=== PATIENT | female | born 1995 | race Caucasian/White ===

== ENCOUNTER 2016-11-22 07:02 | Emergency (ER) | payer OTHER ==
[~2016-11-22] VITALS: Ht 175.3 cm; Wt 93.2 kg
[~2016-11-22 07:02] MED LIST: BCPILLS PO
[2016-11-22 07:07] VITALS: TEMP 36.3; Ht 175.3 cm; Wt 93.2 kg
[2016-11-22] MEDS ORDERED: SERT50TA PO (07:18)
[2016-11-22] MEDS ORDERED: MULT-506 PO (07:18)
[2016-11-22] MEDS ORDERED: HYDR25CA PO (07:18)
[2016-11-22] MEDS ORDERED: SODIUM CHLORIDE 0.9% 1000ML 2,000 ML IV STA (07:38)
[2016-11-22] MEDS ORDERED: ONDANSETRON INJ 2 MG/ML 2 ML VIAL IV STA (07:38)
[2016-11-22] MEDS ORDERED: MoRPHine SULFATE 4 MG/ML 1 ML CARP\\VIAL IV STA (07:38)
--- NOTE | 2016-11-22 07:48 | EMERGENCY ROOM VISIT NOTE ---
History Report prepared by Tulio: Jorge Garcia Under the Supervision of: Dr. Tiffani Waters M.D. First contact with patient: 07:12 Chief Complaint: GI ASSESSMENT Stated Complaint: VOMITING AND SEVERE STOMACH PAIN Nursing Triage Summary: pt reports awakenin at 0300 with NVD, " my belly hurts all over" denies urinary sx pt reports blood in stool with BM this AM History of Present Illness The patient is a 21 year old female who presents to the Emergency Room with complaints of persistent abdominal discomfort that started four hours ago. The patient complains of multiple episodes of nausea, vomiting, and diarrhea. She notes that there might have been blood in her stool shortly before she presented to the ED for further evaluation, however, she is not sure. She notes that she has been having some GI problems for the past months noting frequent episodes of diarrhea. The patient notes one medication change saying that she started Zoloft this week. Source of History: patient Onset: 4 hours ago Position: other (GI) Timing: other (persistent) Associated Symptoms: + diarrhea, + nausea, + vomiting Review of Systems See HPI for pertinent positives & negatives. A total of 10 systems reviewed and were otherwise negative. Past Medical & Surgical Medical Problems: (1) Stomach problems Family History FH: cancer FH: hypertension FH: lupus Social History Smoking Status: Never Smoker Alcohol Use: none Marital Status: single Occupation Status: [employer] student Current/Historical Medications Scheduled Multivitamin (Multivitamin), 1 TAB PO DAILY Ondasetron Odt (Zofran Odt), 4 MG SL Q6H Sertraline (Zoloft), 50 MG PO DAILY Scheduled PRN Hydroxyzine Pamoate (Vistaril), 1 CAP PO HS PRN for Sleep Allergies Coded Allergies: No Known Allergies (Unverified , 11/22/14) Physical Exam Vital Signs Date Time Temp Pulse Resp B/P Pulse Ox O2 Delivery O2 Flow Rate FiO2 11/22/16 11:22 106/68 11/22/16 10:25 92 18 112/70 11/22/16 09:03 114/75 11/22/16 08:10 78 20 87/48 100 Room Air 11/22/16 07:07 36.3 103 18 128/88 99 Room Air Physical Exam Vital signs reviewed. General: Generally well-appearing female, in some discomfort. HEENT: No scleral icterus, PERRLA, neck supple. Atraumatic. Cardiovascular: Regular rate and rhythm, no extra sounds. Pulmonary: Clear to auscultation bilaterally, normal work of breathing. Abdomen: Soft, diffuse abdominal tenderness, no rebound or guarding, nondistended, positive bowel sounds. Musculoskeletal: Atraumatic, no peripheral edema. Neurologic: Patient awake alert and oriented x 3, full strength in all 4 extremities. Cranial nerves 2 through 12 grossly intact. Skin: Warm, dry, no rash Medical Decision & Procedures Laboratory Results 11/22/16 07:55 Red Blood Count 5.38, Mean Corpuscular Volume 81.4, Mean Corpuscular Hemoglobin 28.8, Mean Corpuscular Hemoglobin Concent 35.4, Mean Platelet Volume 9.1, Neutrophils (%) (Auto) 92.2, Lymphocytes (%) (Auto) 2.5, Monocytes (%) (Auto) 4.4, Eosinophils (%) (Auto) 0.3, Basophils (%) (Auto) 0.1, Neutrophils # (Auto) 12.77, Lymphocytes # (Auto) 0.35, Monocytes # (Auto) 0.61, Eosinophils # (Auto) 0.04, Basophils # (Auto) 0.02 11/22/16 07:55 Test 11/22/16 07:55 11/22/16 08:10 White Blood Count 13.86 K/uL (4.8-10.8) Red Blood Count 5.38 M/uL (4.2-5.4) Hemoglobin 15.5 g/dL (12.0-16.0) Hematocrit 43.8 % (37-47) Mean Corpuscular Volume 81.4 fL (80-100) Mean Corpuscular Hemoglobin 28.8 pg (25-34) Mean Corpuscular Hemoglobin Concent 35.4 g/dl (32-36) Platelet Count 216 K/uL (130-400) Mean Platelet Volume 9.1 fL (7.4-10.4) Neutrophils (%) (Auto) 92.2 % Lymphocytes (%) (Auto) 2.5 % Monocytes (%) (Auto) 4.4 % Eosinophils (%) (Auto) 0.3 % Basophils (%) (Auto) 0.1 % Neutrophils # (Auto) 12.77 K/uL (1.4-6.5) Lymphocytes # (Auto) 0.35 K/uL (1.2-3.4) Monocytes # (Auto) 0.61 K/uL (0.11-0.59) Eosinophils # (Auto) 0.04 K/uL (0-0.5) Basophils # (Auto) 0.02 K/uL (0-0.2) RDW Standard Deviation 39.4 fL (36.4-46.3) RDW Coefficient of Variation 13.2 % (11.5-14.5) Immature Granulocyte % (Auto) 0.5 % Immature Granulocyte # (Auto) 0.07 K/uL (0.00-0.02) Anion Gap 9.0 mmol/L (3-11) Est Creatinine Clear Calc Drug Dose 115.1 ml/min Estimated GFR () 100.5 Estimated GFR (Non- 86.7 BUN/Creatinine Ratio 13.5 (10-20) Calcium Level 9.4 mg/dl (8.5-10.1) Magnesium Level 2.0 mg/dl (1.8-2.4) Total Bilirubin 0.7 mg/dl (0.2-1) Direct Bilirubin 0.1 mg/dl (0-0.2) Aspartate Amino Transf (AST/SGOT) 13 U/L (15-37) Alanine Aminotransferase (ALT/SGPT) 20 U/L (12-78) Alkaline Phosphatase 91 U/L (45-117) Total Protein 8.4 gm/dl (6.4-8.2) Albumin 3.9 gm/dl (3.4-5.0) Human Chorionic Gonadotropin, Qual NEG (NEG) Urine Color ALICIA Urine Appearance SL CLOUDY (CLEAR) Urine pH 5.5 (4.5-7.5) Urine Specific [place] >= 1.030 (1.000-1.030) Urine Protein TRACE (NEG) Urine Glucose (UA) NEG (NEG) Urine Ketones TRACE (NEG) Urine Occult Blood NEG (NEG) Urine Nitrite NEG (NEG) Urine Bilirubin NEG (NEG) Urine Urobilinogen NEG (NEG) Urine Leukocyte Esterase NEG (NEG) Urine WBC (Auto) 1-5 /hpf (0-5) Urine RBC (Auto) 5-10 /hpf (0-4) Urine Hyaline Casts (Auto) 5-10 /lpf (0-5) Urine Epithelial Cells (Auto) >30 /lpf (0-5) Urine Bacteria (Auto) NEG (NEG) Urine Mucus PRESENT (NONE PRSENT) Laboratory results per my review. Medications Administered Medications (Trade) Dose Ordered Sig/Isabela Route Start Time Stop Time Status Last Admin Dose Admin Sodium Chloride (Nss 1000ml) 2,000 ml @ 999 mls/hr Q2H1M STAT IV 11/22/16 07:38 11/22/16 09:38 DC 11/22/16 08:13 999 MLS/HR Ondansetron HCl (Zofran Inj) 4 mg NOW STAT IV 11/22/16 07:38 11/22/16 07:41 DC 11/22/16 08:13 4 MG Morphine Sulfate 4 mg 4 mg NOW STAT IV 11/22/16 07:38 11/22/16 07:42 DC 11/22/16 08:13 4 MG Promethazine HCl/ Sodium Chloride (Phenergan Inj/ Nss 50ml) 50.5 ml @ 204 mls/hr NOW STAT IV 11/22/16 10:05 11/22/16 10:19 DC 11/22/16 10:15 204 MLS/HR Ketorolac Tromethamine (Toradol Inj) 30 mg NOW STAT IV 11/22/16 10:07 11/22/16 10:08 DC 11/22/16 10:14 30 MG ED Course 0724: Past medical records reviewed. The patient was evaluated in room B9. A complete history and physical examination was performed. 0738: Ordered Morphine Sulfate 4 mg IV, Zofran Inj 4 mg IV, NSS 2000 ml @ 999 mls/hr IV. 0950: At this time, I reevaluated the patient and she was still having pain and felt nauseous. She asked for some more pain medication. 1005: Ordered Promethazine HCl 12.5 mg/ NSS 50.5 ml @ 204 mls/hr IV. 1007: Ordered Toradol Inj 30 m IV. 1122: Upon reevaluation, the patient appeared to have improvement of her symptoms. I discussed findings with her. She verbalized agreement of the treatment plan. The patient was discharged home. Medical Decision Differential diagnosis: Etiologies such as gastroenteritis, food borne illness, infections, appendicitis , diverticulitis, inflammatory bowel disease, obstruction, GI bleed, biliary pathology, as well as others were entertained. This patient was evaluated and appeared to be in no significant distress. IV access was obtained and laboratory work was drawn. Patient was hydrated with normal saline solution. She was given IV Zofran and morphine for the pain. Laboratory work is fairly unrevealing. Patient continued to complain of nausea was given IV Phenergan and Toradol. She was able to tolerate by mouth ice chips. Patient was feeling comfortable with the plan for discharge. She was given Zofran ODT to be used every 6 hours as needed for nausea. I suspect viral etiology. She'll follow-up with her primary care physician for reevaluation if symptoms persist and return to the ER for worsening of symptoms or any medical concerns. Impression Primary Impression: Vomiting and diarrhea Scribe Attestation The scribe's documentation has been prepared under my direction and personally reviewed by me in its entirety. I confirm that the note above accurately reflects all work, treatment, procedures, and medical decision making performed by me. Departure Information Dispostion Home / Self-Care Prescriptions Ondasetron Odt (ZOFRAN ODT) 4 Mg Tab 4 MG SL Q6H for Nausea, #10 TAB Prov: Tiffani Waters M.D. 11/22/16 Referrals No Doctor, Assigned (PCP) Forms HOME CARE DOCUMENTATION FORM, IMPORTANT VISIT INFORMATION Patient Instructions My [facility] Additional Instructions Diagnosis: Vomiting and diarrhea Drink plenty of clear fluids Zofran 4 mg ODT every 6 hours as needed for nausea. Clear liquids for 24 hours then advance your diet as tolerated. BRAT diet: Bananas, rice, applesauce and toast. Avoid greasy and spicy foods. Follow-up with your primary care physician this week for reevaluation if symptoms persist. Return to the ER for worsening of symptoms or any medical concerns.
[2016-11-22 08:10] VITALS: O2SAT 100
[2016-11-22 08:11] LABS: BASO % 0.1 %; BASO ABS # 0.02 K/uL (0-0.2); COMPLETE YES; EOS % 0.3 %; HEMATOCRIT 43.8 % (37-47); IG% 0.5 %; LYMPH % 2.5 %; LYMPH ABS # 0.35 K/uL (1.2-3.4); MEAN CELL VOLUME 81.4 fL (80-100); MEAN CORPUSCULAR HEMOGLOBIN 28.8 pg (25-34); MEAN CORPUSCULAR HGB CONC 35.4 g/dl (32-36); MEAN PLATELET VOLUME 9.1 fL (7.4-10.4); MONO % 4.4 %; NEUT % 92.2 %; PLATELET COUNT 216 K/uL (130-400); RED BLOOD COUNT 5.38 M/uL (4.2-5.4); WHITE BLOOD COUNT 13.86 K/uL (4.8-10.8)
[2016-11-22 08:21] LABS: BUN/CREATININE RATIO 13.5 (10-20); CALCIUM 9.4 mg/dl (8.5-10.1); CREATININE 0.94 mg/dl (0.60-1.20)
[2016-11-22 08:23] LABS: PREG INTERNAL NEGATIVE QC NEG CLEAR BACKGROUND; PREG INTERNAL POSITIVE QC POS CONTROL LINE
[2016-11-22 08:37] LABS: URINE APPEARANCE SL CLOUDY (CLEAR); URINE BILIRUBIN NEG (NEG); URINE COLOR AMBER; URINE NITRITE NEG (NEG); URINE PH 5.5 (4.5-7.5); URINE SPECIFIC GRAVITY >= 1.030 (1.000-1.030); UROBILINOGEN NEG (NEG)
[2016-11-22 08:50] LABS: URINE EPITHELIAL CELL AUTO >30 /lpf (0-5)
[2016-11-22 08:51] LABS: MANUAL MICROSCOPIC REQUIRED? NO; REVIEW REQ? NO; ZZUR CULT IF INDIC CLEAN CATCH NO
[2016-11-22 08:54] LABS: URINE MUCUS PRESENT (NONE PRSENT)
[2016-11-22] MEDS ORDERED: PROMETHAZINE HCL INJ 12.5 MG in SODIUM CHLORIDE 0.9% 50ML 50 ML IV STA (10:05)
[2016-11-22] MEDS ORDERED: KETOROLAC TROMETHAMINE 30 MG/ML VIAL IV STA (10:07)
[2016-11-22 10:25] VITALS: PULSE 92
[2016-11-22] MEDS ORDERED: ONDA4TAB10 SL (11:02)
[2016-11-22 11:22] VITALS: BP 106/68
== END 2016-11-22 11:23 | disposition home or self-care (01) ==
LOC: C.EDB 07:03 → C.ED 11:23
DX: R11.2 Nausea with vomiting, unspecified (principal); R19.7 Diarrhea, unspecified; R10.9 Unspecified abdominal pain; Z82.49 Family history of ischemic heart disease and other diseases of the circulatory system